=== PATIENT | male | born 1940 | race Caucasian/White ===

== ENCOUNTER 2017-02-16 12:15 | Outpatient (CLI) | payer OTHER ==
[~2017-02-16 12:15] MED LIST: ACETAMINOPHEN500 MG PO; ALLOPURINOL100 MG PO; ALTOPREV20 MG PO; AMLODIPINE BES2.5 MG PO; ASPIRIN CHILDRE81 MG PO; COZAAR100 MG PO; ENTERIC COATED325 M1 PO; LABETALOL HCL100 MG PO; LOVENOX40 MG/0.4 SC; NORCO1 TA1 PO; PERCOCET1 TA1 PO; TRAZODONE HCL50 MG PO; ZOLOFT50 MG PO
--- NOTE | 2017-02-16 13:49 | DIAGNOSTIC IMAGING REPORT ---
PROCEDURE: MR LUMBAR SPINE W/O CONTRAST INDICATION: SPINAL STENOSIS TECHNIQUE: T1, T2, and STIR sagittal sequences. T2 and T1 axial sequences. COMPARISON: None. FINDINGS: Alignment and curvature: Trace L1 on L2 retrolisthesis. Trace L4-5 anterolisthesis. Vertebral bodies: Mildly heterogeneous fatty marrow signal. A very minor edema in the left L5 pedicle. There is moderate size Schmorl's node along the inferior L1 endplate. Mild posterior and anterior endplate spurring at most levels. Disc spaces: Mild disc desiccation at L1-2, L3-4, and L4-5. Moderate disc height loss L4-5, L3-4, and mild disc height loss elsewhere. Spinal canal: The conus is normal, terminating at T12-L1 level. Distal cord is normal caliber and signal. No suspicious central canal masses. Paraspinal soft tissues: A small left renal cyst. Otherwise normal paraspinal soft tissues. L1-2: Mild circumferential disc osteophyte complex, mild facet arthropathy, and mild bilateral foraminal narrowing. L2-3: Moderate circumferential disc osteophyte complex and moderate facet arthropathy. Mild epidural lipomatosis. Mild to moderate central canal stenosis with particular right lateral recess narrowing. Mild right, and mild to moderate left foraminal narrowing. L3-4: Moderate to large circumferential disc bulge. Moderate facet arthropathy and ligamentum flavum hypertrophy. There is complete effacement of the CSF space (severe central canal stenosis), and obliteration of the lateral recess space. Disc and facet spurring causes moderate bilateral foraminal narrowing. L4-5: Grade 1 anterolisthesis and moderate posterior disc bulge efface the anterior CSF space. Moderate to severe facet arthropathy and significant ligamentum flavum hypertrophy along with slight epidural lipomatosis efface the posterior CSF space. This results in a severe central canal stenosis at the disc level, and just caudal to the disc level. Lateral recess space is obliterated. Disc and facet spurring together cause moderate to severe bilateral foraminal narrowing. L5-S1: Mild posterior disc bulge and moderate bilateral facet arthropathy. Right lateral recess narrowing. There is a 7 mm right anterolateral synovial cyst arising from the right facet joint impinging on the foraminal right L5 nerve root. Mild to moderate bilateral foraminal narrowing is present. IMPRESSION: 1. Disc osteophyte complex and posterior element hypertrophy both contribute to cause severe central canal stenoses at L4-5 and at L3-4. 2. Multilevel, multifactorial bilateral foraminal narrowing, from L2-3 through L5-S1, but most significant at L3-4 and L4-5. 3. 7 mm synovial cyst impinging on the right L5 exiting nerve root in the neural foramen at the L5-S1 level.
== END 2017-02-16 23:00 | disposition home or self-care (01) ==
LOC: MRI SRH 12:15
DX: M48.06 Spinal stenosis, lumbar region (principal); M71.38 Other bursal cyst, other site; M54.16 Radiculopathy, lumbar region